=== PATIENT | female | born 1985 | race Caucasian/White ===

== ENCOUNTER 2018-04-30 12:15 | Emergency (ER) | payer OTHER ==
[~2018-04-30] VITALS: Ht 154.9 cm; Wt 72.6 kg
[~2018-04-30 12:15] MED LIST: ALOE VERA; CLINDAMYCIN HC150 MG PO
[2018-04-30] MEDS ORDERED: DOXYCYCLINE 10100 MG PO (12:27)
== END 2018-04-30 13:05 | disposition home or self-care (01) ==
LOC: ER 12:15
DX: L72.3 Sebaceous cyst (principal); Z86.14 Personal history of Methicillin resistant Staphylococcus aureus infection; F17.210 Nicotine dependence, cigarettes, uncomplicated; Z88.1 Allergy status to other antibiotic agents; Z88.2 Allergy status to sulfonamides; Z88.8 Allergy status to other drugs, medicaments and biological substances